=== PATIENT | male | born 1960 | race African-American/Black ===

== ENCOUNTER 2018-03-19 15:31 | Inpatient (IN) | payer OTHER ==
[~2018-03-19] VITALS: Ht 185.4 cm; Wt 74.8 kg
[~2018-03-19 15:31] MED LIST: ALBUTEROL0.63 MG/3 HHN; IBUPROFEN600 MG ORAL; NKM
[2018-03-19 15:44] VITALS: BP 148/100
[2018-03-19] MEDS ORDERED: Isovue-300 100ml vial INJ PRN (16:00)
[2018-03-19] MEDS ORDERED: Ketorolac 30mg Inj IV ONE (16:00)
[2018-03-19] MEDS ORDERED: Morphine Sulfate 4mg/ml Inj (IV/IM USE ONLY) IVP ONE (16:00)
[2018-03-19 16:19] LABS: BASOPHILS % (AUTO) 1.1 % (0.0-2.0); EOSINOPHILS % (AUTO) 0.9 % (0.0-3.0); HEMATOCRIT 49.2 % (42.0-52.0); LYMPHOCYTES % (AUTO) 23.2 % (20.0-45.0); MEAN CORPUSCULAR VOLUME 97 FL (80-99); MONOCYTES % (AUTO) 9.4 % (1.0-10.0); NEUTROPHILS % (AUTO) 65.4 % (45.0-75.0); PLATELET COUNT 189 K/UL (150-450); RED BLOOD COUNT 5.05 M/UL (4.70-6.10); RED CELL DISTRIBUTION WIDTH 11.7 % (11.6-14.8); WHITE BLOOD COUNT 8.2 K/UL (4.8-10.8)
[2018-03-19 16:29] LABS: ANION GAP 9 mmol/L (5-15); BLOOD UREA NITROGEN 8 mg/dL (7-18); CARBON DIOXIDE 24 MMOL/L (21-32); CHLORIDE 105 MMOL/L (98-107); CREATININE 1.1 MG/DL (0.55-1.30); POTASSIUM 4.4 MMOL/L (3.5-5.1); SODIUM 138 MMOL/L (136-145)
[2018-03-19 16:35] LABS: ALANINE AMINOTRANSFERASE 25 U/L (12-78); ALBUMIN 3.4 G/DL (3.4-5.0); ALBUMIN/GLOBULIN RATIO 0.8 (1.0-2.7); ALKALINE PHOSPHATASE 61 U/L (46-116); ASPARTATE AMINO TRANSFERASE 26 U/L (15-37); BILIRUBIN,TOTAL 0.5 MG/DL (0.2-1.0)
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
[2018-03-19 17:15] VITALS: BP 144/90
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
[2018-03-19 18:15] VITALS: BP 122/83
[2018-03-19 20:00] VITALS: BP 122/78
[2018-03-19] MEDS ORDERED: Milk of Magnesia 30ml Ud ORAL PRN (21:30)
[2018-03-19] MEDS ORDERED: Mylanta II UD 30ml ORAL PRN (21:30)
[2018-03-19] MEDS ORDERED: Morphine Sulfate 2mg/ml Inj IVP PRN (21:30)
--- NOTE | 2018-03-19 21:36 | Consultation ---
History of Present Illness General Date patient seen: Mar 19, 2018 Chief Complaint: Pain Present Illness HPI 58 year old male with known history of large groin hernia for years presented with hernia pain, nausea, emesis x 1 day. States that he has had hernia for years now and intermittently has "flare-ups" where he has pain for a few days. states that today began to have a flare up with nausea and emesis. came to ed for evaluation. labs nml. CT with incarcerated left inguinal hernia. admitted for care and management. surgery called to evaluate. patient seen, chart reviewed, patient examined. no abdominal pain. n/v resolved since. passing flatus. last BM this afternoon. Allergies: Coded Allergies: No Known Allergies (Unverified , 10/16/12) Medication History Scheduled Albuterol Sulfate (Albuterol Sulfate), 0.63 MG HHN Q4HR, (Reported) Ibuprofen* (Motrin*), 600 MG ORAL Q8H No Known Medications* (NKM - No Known Medications*), 0 ., (Reported) Patient History History Provided By: Patient, Medical Record, PMD Healthcare decision maker N Resuscitation status Advanced Directive on File Past Medical/Surgical History Past Medical/Surgical History: (1) Hernia (2) Inguinal hernia of left side with obstruction Review of Systems All Other Systems: negative except mentioned in HPI Physical Exam General Appearance: no apparent distress, alert Lines, tubes and drains: peripheral HEENT: mucous membranes moist Neck: normal inspection Respiratory/Chest: normal breath sounds, no respiratory distress, no accessory muscle use Cardiovascular/Chest: normal rate, regular rhythm Abdomen: soft, no organomegaly, no mass, hernia Extremities: non-tender, normal inspection Skin Exam: warm/dry Neurologic: alert, oriented x 3 Last 24 Hour Vital Signs Date Time Temp Pulse Resp B/P (MAP) Pulse Ox O2 Delivery O2 Flow Rate FiO2 03/19/18 20:28 Room Air 03/19/18 20:00 99.4 92 19 122/78 (93) 97 03/19/18 20:00 92 19 122/78 (93) 97 03/19/18 18:15 98.7 94 18 122/83 (96) 98 03/19/18 17:57 97.6 78 20 146/78 98 Room Air 03/19/18 17:15 98.0 98 18 144/90 96 Room Air 03/19/18 16:39 97.9 03/19/18 15:44 98.0 115 23 148/100 97 Room Air 03/19/18 15:27 98.1 90 15 127/86 98 Room Air Laboratory Tests Test 03/19/18 16:00 03/19/18 17:55 White Blood Count 8.2 K/UL (4.8-10.8) Red Blood Count 5.05 M/UL (4.70-6.10) Hemoglobin 16.0 G/DL (14.2-18.0) Hematocrit 49.2 % (42.0-52.0) Mean Corpuscular Volume 97 FL (80-99) Mean Corpuscular Hemoglobin 31.6 PG (27.0-31.0) H Mean Corpuscular Hemoglobin Concent 32.4 G/DL (32.0-36.0) Red Cell Distribution Width 11.7 % (11.6-14.8) Platelet Count 189 K/UL (150-450) Mean Platelet Volume 8.1 FL (6.5-10.1) Neutrophils (%) (Auto) 65.4 % (45.0-75.0) Lymphocytes (%) (Auto) 23.2 % (20.0-45.0) Monocytes (%) (Auto) 9.4 % (1.0-10.0) Eosinophils (%) (Auto) 0.9 % (0.0-3.0) Basophils (%) (Auto) 1.1 % (0.0-2.0) Prothrombin Time 10.1 SEC (9.30-11.50) Prothromb Time International Ratio 1.0 (0.9-1.1) Activated Partial Thromboplast Time 20 SEC (23-33) L Sodium Level 138 MMOL/L (136-145) Potassium Level 4.4 MMOL/L (3.5-5.1) Chloride Level 105 MMOL/L (98-107) Carbon Dioxide Level 24 MMOL/L (21-32) Anion Gap 9 mmol/L (5-15) Blood Urea Nitrogen 8 mg/dL (7-18) Creatinine 1.1 MG/DL (0.55-1.30) Estimat Glomerular Filtration Rate > 60 mL/min (>60) Glucose Level 118 MG/DL (74-106) H Calcium Level 9.0 MG/DL (8.5-10.1) Total Bilirubin 0.5 MG/DL (0.2-1.0) Aspartate Amino Transf (AST/SGOT) 26 U/L (15-37) Alanine Aminotransferase (ALT/SGPT) 25 U/L (12-78) Alkaline Phosphatase 61 U/L (46-116) Total Protein 7.7 G/DL (6.4-8.2) Albumin 3.4 G/DL (3.4-5.0) Globulin 4.3 g/dL Albumin/Globulin Ratio 0.8 (1.0-2.7) L Lipase 119 U/L (73-393) Lactic Acid Level 1.20 mmol/L (0.4-2.0) Height (Feet): 6 Height (Inches): 1.00 Weight (Pounds): 165 Medications Current Medications Medications (Trade) Dose Ordered Sig/Ludy Route PRN Reason Start Time Stop Time Status Last Admin Dose Admin Iopamidol (Isovue-300 100ml) 100 ml NOW PRN INJ Radiology Procedure 03/19/18 16:00 Assessment/Plan Problem List: (1) Inguinal hernia of left side with obstruction Assessment & Plan: large left inguinal hernia. CT with incarceration. afebrile, HD stable, labs nml. lactic acid nml exam with large left hernia. I was able to easily reduce hernia at bedside. large mouth hernia with contents into scrotal sac without strangulation clinically will monitor overnight. will likely recur given size but unless not reducible, obstructive, or strangulated would recommend elective repair. this was explained to patient -d/c ng tube -okay for sips of clears tonight and advance diet tomorrow -AM labs -will re examine in AM thank you ICD Codes: K40.30 - Unilateral inguinal hernia, with obstruction, without gangrene, not specified as recurrent SNOMED: 790645609 Status: stable LarajorgeOsvaldo Mar 19, 2018 21:36
[2018-03-20] VITALS: BP 111/62
--- NOTE | 2018-03-20 03:00 | History and Physical Report ---
DATE OF ADMISSION: 03/19/2018 REASON FOR ADMISSION: Hernia. HISTORY OF PRESENT ILLNESS: This is a 58-year-old male. He has a large groin hernia for many years. He presented to the emergency room with nausea and emesis of one day's duration and increasing pain. The patient has intermittent flare-ups. They last few days and are similar to this, although of severity at this time is much worse. The patient had a CAT scan revealing incarceration of the left inguinal hernia. PAST MEDICAL HISTORY: Includes COPD and hypertension. ALLERGIES: None. MEDICATIONS: Reviewed and reconciled. FAMILY HISTORY: Noncontributory. SOCIAL HISTORY: No current smoking or alcohol use. No substance abuse. REVIEW OF SYSTEMS: Otherwise unremarkable. PHYSICAL EXAMINATION: VITAL SIGNS: Afebrile. Blood pressure 127/86, pulse 90, respiratory rate 15. HEENT: Normocephalic, atraumatic. Conjunctivae pink. Sclerae are anicteric. Oropharynx clear. Mucous membranes moist. NECK: Supple. LUNGS: Clear. CARDIAC: Regular rhythm and rate. Normal S1, S2. No murmur, rub, or gallop. ABDOMEN: Soft. There is a large area of scrotal swelling, but no CVA tenderness. There is no edema on the left. LABORATORY DATA: White count 8.2, hemoglobin 16. Chemistry panel within normal limits. IMPRESSION: 1. Left inguinal hernia, possibly incarcerated. 2. History of COPD with no active bronchospasm. 3. Hypertension controlled. PLAN: 1. NPO IV fluids. 2. Pain control. 3. Emergent surgical evaluation for possible reduction of hernia versus surgical intervention. Danny Coffey M.D. DR: ISABELLA JOB#: [id number] CC:
[2018-03-20 04:00] VITALS: BP 104/69
[2018-03-20 07:26] LABS: BASOPHILS % (AUTO) 1.3 % (0.0-2.0); HEMATOCRIT 42.2 % (42.0-52.0); HEMOGLOBIN 14.1 G/DL (14.2-18.0); LYMPHOCYTES % (AUTO) 29.1 % (20.0-45.0); MEAN CORPUSCULAR VOLUME 96 FL (80-99); NEUTROPHILS % (AUTO) 58.5 % (45.0-75.0); PLATELET COUNT 195 K/UL (150-450); RED BLOOD COUNT 4.38 M/UL (4.70-6.10); WHITE BLOOD COUNT 7.2 K/UL (4.8-10.8)
[2018-03-20 07:35] LABS: ANION GAP 7 mmol/L (5-15); BLOOD UREA NITROGEN 6 mg/dL (7-18); CALCIUM 8.5 MG/DL (8.5-10.1); CARBON DIOXIDE 27 MMOL/L (21-32); CHLORIDE 106 MMOL/L (98-107); CREATININE 1.1 MG/DL (0.55-1.30); POTASSIUM 3.4 MMOL/L (3.5-5.1); SODIUM 140 MMOL/L (136-145)
[2018-03-20 08:00] VITALS: BP 115/66
[2018-03-20] MEDS ORDERED: Docusate 100mg cap ORAL SCH (09:00)
[2018-03-20] MEDS ORDERED: Heparin 5000 units/ml inj SUBQ SCH (09:00)
[2018-03-20 12:00] VITALS: BP 116/69
[2018-03-20 16:00] VITALS: BP 114/80
--- NOTE | 2018-03-20 16:14 | General Surgery Progress Note ---
General Surgery-Progress Note Subjective Symptoms: improved, pain absent, tolerating diet, passing flatus Objective Last 24 Hour Vital Signs Date Time Temp Pulse Resp B/P (MAP) Pulse Ox O2 Delivery O2 Flow Rate FiO2 03/20/18 12:00 98.9 71 19 116/69 (85) 99 03/20/18 09:00 Room Air 03/20/18 08:00 98.7 75 19 115/66 (82) 98 03/20/18 04:00 99.4 74 19 104/69 (81) 97 03/20/18 00:00 99.3 73 20 111/62 (78) 98 03/19/18 21:00 Room Air 03/19/18 20:28 Room Air 03/19/18 20:00 99.4 92 19 122/78 (93) 97 03/19/18 20:00 92 19 122/78 (93) 97 03/19/18 18:15 98.7 94 18 122/83 (96) 98 03/19/18 17:57 97.6 78 20 146/78 98 Room Air 03/19/18 17:15 98.0 98 18 144/90 96 Room Air 03/19/18 16:39 97.9 I&O Intake and Output 03/19/18 03/20/18 19:00 07:00 Intake Total 875 ml Output Total 0 ml 850 ml Balance 0 ml 25 ml Intake IV Total 875 ml Output Urine Total 0 ml 850 ml # Voids 3 Cardiovascular: RSR Respiratory: clear Abdomen: soft, flat, non-tender, present bowel sounds Extremities: no tenderness, no cyanosis Laboratory Tests Test 03/19/18 17:55 03/20/18 06:08 Lactic Acid Level 1.20 mmol/L (0.4-2.0) White Blood Count 7.2 K/UL (4.8-10.8) Red Blood Count 4.38 M/UL (4.70-6.10) L Hemoglobin 14.1 G/DL (14.2-18.0) L Hematocrit 42.2 % (42.0-52.0) Mean Corpuscular Volume 96 FL (80-99) Mean Corpuscular Hemoglobin 32.2 PG (27.0-31.0) H Mean Corpuscular Hemoglobin Concent 33.5 G/DL (32.0-36.0) Red Cell Distribution Width 12.0 % (11.6-14.8) Platelet Count 195 K/UL (150-450) Mean Platelet Volume 8.3 FL (6.5-10.1) Neutrophils (%) (Auto) 58.5 % (45.0-75.0) Lymphocytes (%) (Auto) 29.1 % (20.0-45.0) Monocytes (%) (Auto) 10.0 % (1.0-10.0) Eosinophils (%) (Auto) 1.0 % (0.0-3.0) Basophils (%) (Auto) 1.3 % (0.0-2.0) Sodium Level 140 MMOL/L (136-145) Potassium Level 3.4 MMOL/L (3.5-5.1) L Chloride Level 106 MMOL/L (98-107) Carbon Dioxide Level 27 MMOL/L (21-32) Anion Gap 7 mmol/L (5-15) Blood Urea Nitrogen 6 mg/dL (7-18) L Creatinine 1.1 MG/DL (0.55-1.30) Estimat Glomerular Filtration Rate > 60 mL/min (>60) Glucose Level 86 MG/DL (74-106) Calcium Level 8.5 MG/DL (8.5-10.1) Plan Problems: (1) Inguinal hernia of left side with obstruction Assessment & Plan: large left inguinal hernia. CT with incarceration. afebrile, HD stable, labs nml. lactic acid nml exam with large left hernia. I was able to easily reduce hernia at bedside. large mouth hernia with contents into scrotal sac without strangulation clinically will monitor overnight. will likely recur given size but unless not reducible, obstructive, or strangulated would recommend elective repair. this was explained to patient hernia still reducible exam benign doing well. tolerating diet passing flatus -d/c home outpatient follow up for hernia surgery thank you Osvaldo Oviedo Mar 20, 2018 16:14
--- NOTE | 2018-03-21 00:45 | Progress Note ---
INTERNAL MEDICINE PROGRESS NOTE DATE: 03/20/2018 SUBJECTIVE: The patient's hernia was reduced yesterday. Pain control has been improved. The patient is on a clear liquid diet. No nausea or vomiting noted. He is passing gas. PHYSICAL EXAMINATION: VITAL SIGNS: Blood pressure 115/66, pulse 75, and respirations 19. Afebrile. Oxygen saturation 98% on room air. NECK: Supple. LUNGS: Clear. CARDIAC: Regular. Normal S1, S2 with no murmur. ABDOMEN: Soft. : Hernia is reduced. EXTREMITIES: There is no edema. LABORATORY DATA: White count is 7.2, hemoglobin 14.1. Chemistry panel is notable for potassium 3.4. IMPRESSION: 1. Large left inguinal hernia status post reduction by surgeon. 2. Hypokalemia. 3. Hypertension. 4. Chronic obstructive pulmonary disease. PLAN: 1. Advance diet. 2. Discontinue IV pain control. 3. Potassium repletion. 4. Discharge plan if tolerates diet and hernia site remains stable with surgical clearance to follow. Danny Coffey M.D. DR: MERVIN JOB#: [id number] CC:
--- NOTE | 2018-03-21 14:12 | Cardiology Report ---
APPROVED REPORT EKG Measurement Heart [id number] Normal sinus rhythm Possible Left atrial enlargement Septal infarct, age undetermined Abnormal ECG
--- NOTE | 2018-03-22 08:37 | Discharge Summary ---
Discharge Summary Discharge Summary _ DATE OF ADMISSION: 03/19/2018 DATE OF DISCHARGE: 03/20/2018 DISCHARGED BY: REASON FOR ADMISSION: 58 years old male with past medical history of COPD and hypertension, presented to emergency room with nausea and vomiting for 1 day. Patient had large left groin hernia for years with intermittent flare ups. Patient reported pain at the site of hernia. Upon evaluation vital signs were stable. Laboratory workup revealed no leukocytosis ,stable hemoglobin hematocrit. Stable electrolytes and renal parameters. Lactic acid was within normal limits. CT scan of abdomen and pelvis revealed large left inguinal/scrotal hernia , containing fat , bowel and some fluid. Some thickening of small bowel loops noted. Patient admitted with diagnosis of left inguinal hernia ,possibly incarcerated; COPD, hypertension. CONSULTANTS: surgery Dr. Oviedo [facility] COURSE: Patient admitted to medical surgical floor. Patient kept n.p.o. and started on the IV hydration. Pain management was addressed. Surgery consult was requested. Surgeon seen and evaluated patient. Patient appeared hemodynamically stable, afebrile ,with stable labs and stable lactic acid. Physical exam revealed large left inguinal hernia. Surgeon was able to easily reduce the hernia at the bedside. Clinically patient had a large mouth hernia with contents into scrotal sac without strangulation. Surgeon recommended to monitor patient overnight. NG tube which was initially was placed , was discontinued. Patient started on sips of clear liquids and was advanced the next day as tolerated. Patient was able to tolerate diet. Patient continued to be hemodynamically stable, hernia was still reducible, and exam was benign. Patient was passing flatus. Surgeon explained to patient that given the large size of hernia, elective repair was recommended. Since hernia was reducible, nonobstructive and not strangulated, no need for surgical intervention at thsi time. Pain management was addressed . Supportive care provided . Electrolytes were closely monitored, potassium was replaced . Blood pressure was closely monitored, remained stable. Pulse oximetry was stable on room air. No evidence of respiratory distress or acute bronchospasm. Patient clinically stabilized and was ready for discharge home with outpatient follow-up for elective surgery Due to rapid and unexpected improvement in patient condition, patient was discharged in 1 day. FINAL DIAGNOSES: Large left inguinal hernia, status post reduction at the bedside by surgeon COPD -no evidence of bronchospasm Hypertension, stable Hypokalemia DISCHARGE MEDICATIONS: See Medication Reconciliation list. DISCHARGE INSTRUCTIONS: Patient was discharged home . Follow up with primary care provider. Follow-up with a surgeon for elective hernia repair. I have been assigned to dictate discharge summary for this account. I was not involved in the patient's management. Carol London NP Mar 22, 2018 08:37
== END 2018-03-20 18:03 | disposition home or self-care (01) | DRG 254 ==
LOC: EDBD 15:31 → EDBEDREQ 15:55 → EMR 15:59 → 3E 16:20 → EDBEDREQ 17:15 → 3E 18:41
DX: K40.30 Unilateral inguinal hernia, with obstruction, without gangrene, not specified as recurrent (principal); E87.6 Hypokalemia; I10 Essential (primary) hypertension; J44.9 Chronic obstructive pulmonary disease, unspecified
CPT/HCPCS: 36415; 71045; 74018; 74177; 80048; 80053; 83605; 83690; 85025; 85610; 85730; 86850; 86900; 86901; 87081; 93005; 96361; 96374; 96375; 99291; J2405; J8499

== ENCOUNTER 2018-03-29 17:41 | Emergency (ER) | payer OTHER ==
[~2018-03-29] VITALS: Ht 185.4 cm; Wt 74.8 kg
[2018-03-29 17:45] VITALS: BP 117/83
--- NOTE | 2018-03-29 17:45 | NUR ---
ED Nurse Note: pt brought in by EMS, c/o abd pain, n/v/d started this morning. denies eating anything unusual, rates pain 10/10. Pt AA&ox4, gcs=15, skin warm and dry, resp even and unlabored, -n/v/d, ambulates w/steady gait, PA at the bedside, VSS will continue to monitor.
[2018-03-29] MEDS ORDERED: Ketorolac 30mg Inj IM ONE (18:15)
[2018-03-29 18:48] LABS: BASOPHILS % (AUTO) 1.5 % (0.0-2.0); EOSINOPHILS % (AUTO) 0.8 % (0.0-3.0); HEMOGLOBIN 15.1 G/DL (14.2-18.0); LYMPHOCYTES % (AUTO) 19.6 % (20.0-45.0); MEAN CORPUSCULAR VOLUME 96 FL (80-99); MONOCYTES % (AUTO) 15.5 % (1.0-10.0); NEUTROPHILS % (AUTO) 62.7 % (45.0-75.0); PLATELET COUNT 164 K/UL (150-450); RED BLOOD COUNT 4.67 M/UL (4.70-6.10); RED CELL DISTRIBUTION WIDTH 12.4 % (11.6-14.8)
[2018-03-29 18:57] LABS: ANION GAP 12 mmol/L (5-15); BLOOD UREA NITROGEN 11 mg/dL (7-18); CALCIUM 8.6 MG/DL (8.5-10.1); CARBON DIOXIDE 23 MMOL/L (21-32); CHLORIDE 104 MMOL/L (98-107); POTASSIUM 3.7 MMOL/L (3.5-5.1); SODIUM 139 MMOL/L (136-145)
[2018-03-29 19:03] LABS: ALANINE AMINOTRANSFERASE 23 U/L (12-78); ALBUMIN 3.2 G/DL (3.4-5.0); ALBUMIN/GLOBULIN RATIO 0.8 (1.0-2.7); ALKALINE PHOSPHATASE 53 U/L (46-116); ASPARTATE AMINO TRANSFERASE 16 U/L (15-37); BILIRUBIN,TOTAL 0.6 MG/DL (0.2-1.0)
[2018-03-29 19:45] VITALS: BP 128/66
--- NOTE | 2018-03-29 19:45 | NUR ---
ED Nurse Note: pt discharge instruction provided with prescription, pt education done, pt advised to follow up with pcp, homeless discharge list completed, pt provided with list of clinics and snf, pt states he has place to go, pt verbalized understanding and agrees with plan. vss. A&ox4.
--- NOTE | 2018-03-29 20:43 | Emergency Room Report ---
History of Present Illness General Chief Complaint: Abdominal Pain Source: Patient Present Illness HPI 58-year-old male presents to the emergency department complaining of 8 out of 10 in severity abdominal pain, nausea, vomiting and diarrhea 2 days. Patient reports he had similar symptoms last week when he was evaluated here in the emergency department as well. Patient reports history of long-standing inguinal hernia which becomes very enlarged at times. Patient denies erythema, warmth, significant changes in tenderness to the hernia site. Patient denies fevers or chills. Patient states he is able to pass gas. He denies blood in the vomit or stool and he denies black tarry stools. Patient reports abdominal pain primarily on the lower left quadrant. Allergies: Coded Allergies: No Known Allergies (Unverified , 10/16/12) Patient History Past Medical History: see triage record Past Surgical History: none Pertinent Family History: none Reviewed Nursing Documentation: PMH: Agreed; PSxH: Agreed Nursing Documentation-PMH Past Medical History: No History, Except For Hx Hypertension: Yes Hx COPD: Yes Hx Cancer: No Hx Neurological Problems: No Review of Systems All Other Systems: negative except mentioned in HPI Physical Exam Vital Signs Date Time Temp Pulse Resp B/P (MAP) Pulse Ox O2 Delivery O2 Flow Rate FiO2 03/29/18 17:39 99.0 84 16 117/83 98 Room Air Medical Decision Making PA Attestation Dr. Garnett is my supervising Physician whom patient management has been discussed with. Diagnostic Impression: Primary Impression: Hernia ER Course Pt. presents to the ED c/o [ ] Ddx considered but are not limited to [ ] Vital signs: are WNL, pt. is afebrile H&PE are most consistent with [ ] ORDERS: -CBC, BMP: unremarkable ED INTERVENTIONS: Toradol IM DISCHARGE: At this time pt. is stable for d/c to home. Will provide printed patient care instructions, and any necessary prescriptions. Care plan and follow up instructions have been discussed with the patient prior to discharge. Labs Test 03/29/18 18:20 White Blood Count 4.0 K/UL (4.8-10.8) Red Blood Count 4.67 M/UL (4.70-6.10) Hemoglobin 15.1 G/DL (14.2-18.0) Hematocrit 45.0 % (42.0-52.0) Mean Corpuscular Volume 96 FL (80-99) Mean Corpuscular Hemoglobin 32.3 PG (27.0-31.0) Mean Corpuscular Hemoglobin Concent 33.5 G/DL (32.0-36.0) Red Cell Distribution Width 12.4 % (11.6-14.8) Platelet Count 164 K/UL (150-450) Mean Platelet Volume 8.0 FL (6.5-10.1) Neutrophils (%) (Auto) 62.7 % (45.0-75.0) Lymphocytes (%) (Auto) 19.6 % (20.0-45.0) Monocytes (%) (Auto) 15.5 % (1.0-10.0) Eosinophils (%) (Auto) 0.8 % (0.0-3.0) Basophils (%) (Auto) 1.5 % (0.0-2.0) Sodium Level 139 MMOL/L (136-145) Potassium Level 3.7 MMOL/L (3.5-5.1) Chloride Level 104 MMOL/L (98-107) Carbon Dioxide Level 23 MMOL/L (21-32) Anion Gap 12 mmol/L (5-15) Blood Urea Nitrogen 11 mg/dL (7-18) Creatinine 1.0 MG/DL (0.55-1.30) Estimat Glomerular Filtration Rate > 60 mL/min (>60) Glucose Level 93 MG/DL (74-106) Calcium Level 8.6 MG/DL (8.5-10.1) Total Bilirubin 0.6 MG/DL (0.2-1.0) Aspartate Amino Transf (AST/SGOT) 16 U/L (15-37) Alanine Aminotransferase (ALT/SGPT) 23 U/L (12-78) Alkaline Phosphatase 53 U/L (46-116) Total Protein 7.2 G/DL (6.4-8.2) Albumin 3.2 G/DL (3.4-5.0) Globulin 4.0 g/dL Albumin/Globulin Ratio 0.8 (1.0-2.7) Last Vital Signs Date Time Temp Pulse Resp B/P (MAP) Pulse Ox O2 Delivery O2 Flow Rate FiO2 03/29/18 17:45 99.0 78 16 117/83 98 Room Air Disposition: HOME, SELF-CARE Condition: Stable Scripts Mag Hydrox/Al Hydrox/Simeth (ALUM-MAG HYDROXIDE-SIMETH LIQ) 360 Ml Oral.susp 20 ML PO TID, #360 ML Prov: Marychuy Mayo 03/29/18 Referrals: [facility],REFERRING (PCP) Patient Instructions: Inguinal Hernia, Adult, [id number], Abdominal Pain, Adult Additional Instructions: Take medications as directed. Follow up with a Primary Care Provider in 3-5 days, even if your symptoms have resolved. --Please review list of primary care clinics, if you do not already have a primary care provider Return sooner to ED if new symptoms occur, or current symptoms become worse. - Please note that this Emergency Department Report was dictated using [employer] attendant technology software, occasionally this can lead to erroneous entry secondary to interpretation by the dictation equipment. Marychuy Mayo Mar 29, 2018 20:43
[2018-03-29] MEDS ORDERED: ALUM-MAG HYDRO360 ML PO (20:44)
[2018-03-29] MEDS ORDERED: Mylanta II UD 30ml ORAL ONE (20:45)
== END 2018-03-29 19:45 | disposition home or self-care (01) ==
LOC: EDBD 17:41 → EMR 18:14
DX: K40.90 Unilateral inguinal hernia, without obstruction or gangrene, not specified as recurrent (principal); J44.9 Chronic obstructive pulmonary disease, unspecified; I10 Essential (primary) hypertension; R11.2 Nausea with vomiting, unspecified; R19.7 Diarrhea, unspecified
CPT/HCPCS: 36415; 80053; 85025; 96372; 99284; J1885

== ENCOUNTER 2019-05-18 12:13 | Observation (INO) | payer OTHER ==
[2019-05-18] VITALS (10 sets, daily range): BP systolic 105–126; BP diastolic 72–85
[~2019-05-18] VITALS: Ht 188 cm; Wt 85.7 kg
[~2019-05-18 12:13] MED LIST changes: +ALUM-MAG HYDRO360 ML PO
[2019-05-18] MEDS ORDERED: fentaNYL 100 mcg/2 mL IV ONE ×3 (12:15→16:01)
--- NOTE | 2019-05-18 12:21 | Emergency Room Report ---
History of Present Illness General Chief Complaint: Abdominal Pain Source: Patient, EMS Present Illness HPI Patient is a 59-year-old male brought in by EMS for abdominal pain. Patient states that he has had abdominal pain for years but states that it was worse today. Patient complains of diffuse abdominal pain with nonbilious nonbloody vomitus. He denies any fever or chills. Patient denies any chest pain or shortness of breath. Patient denies any palpitations. He complains of constipation for the past several days. Patient admits to smoking cigarettes and crack cocaine. Allergies: Coded Allergies: No Known Allergies (Unverified , 10/16/12) Patient History Social History: Reports: drug use Reviewed Nursing Documentation: PMH: Agreed; PSxH: Agreed Nursing Documentation-PMH Past Medical History: No History, Except For Hx Hypertension: Yes Hx COPD: Yes Hx Cancer: No Hx Neurological Problems: No Review of Systems All Other Systems: negative except mentioned in HPI Physical Exam Vital Signs Date Time Temp Pulse Resp B/P (MAP) Pulse Ox O2 Delivery O2 Flow Rate FiO2 05/18/19 12:02 98.1 71 18 127/81 (96) 100 Room Air Sp02 EP Interpretation: reviewed, normal General Appearance: no apparent distress, alert, GCS 15, non-toxic Head: normocephalic, atraumatic Eyes: bilateral eye normal inspection, bilateral eye PERRL ENT: hearing grossly normal, normal pharynx, no angioedema, normal voice Neck: full range of motion, supple/symm/no masses Respiratory: chest non-tender, lungs clear, normal breath sounds, speaking full sentences Cardiovascular #1: regular rate, rhythm, no edema Gastrointestinal: soft, non-distended, no guarding, no rebound, other - Mild diffuse abdominal tenderness with no guarding or rebound, L inguinal hernia, ttp , not reducible Rectal: deferred Musculoskeletal: back normal, normal range of motion, calf tenderness, gait/ station normal, non-tender Neurologic: alert, motor strength/tone normal, oriented x3, sensory intact, responsive, speech normal Psychiatric: judgement/insight normal, memory normal, mood/affect normal, no suicidal/homicidal ideation Skin: no rash Lymphatic: no adenopathy Medical Decision Making Diagnostic Impression: Primary Impression: Hernia Additional Impressions: SBO (small bowel obstruction) Small bowel strangulation ER Course CT demonstrates large inguinal hernia with small bowel obstruction and strangulation. I have paged who is on-call for general surgery for consultation. I am also requesting insurance approval for patient admission. Patient signed out to Dr. Hoff at 1430 pending admission and surgical consultation. EKG Diagnostic Results EKG Time: 12:15 EP Interpretation: MD Severo Rate: normal Rhythm: NSR ST Segments: no acute changes ASA given to the pt in ED: No Rhythm Strip Diag. Results Rhythm Strip Time: 12:44 EP Interpretation: yes Rate: 77 Rhythm: NSR, no PVC's, no ectopy Last Vital Signs Date Time Temp Pulse Resp B/P (MAP) Pulse Ox O2 Delivery O2 Flow Rate FiO2 05/18/19 12:02 98.1 71 18 127/81 (96) 100 Room Air Signed Out To: Luis Eduardo [id number] Nichelle Elkins M.D. May 18, 2019 12:21
[2019-05-18 13:17] LABS: BASOPHILS % (AUTO) 3.3 % (0.0-2.0); EOSINOPHILS % (AUTO) 3.9 % (0.0-3.0); HEMATOCRIT 44.2 % (42.0-52.0); HEMOGLOBIN 14.8 G/DL (14.2-18.0); LYMPHOCYTES % (AUTO) 35.9 % (20.0-45.0); MEAN CORPUSCULAR VOLUME 96 FL (80-99); MONOCYTES % (AUTO) 11.1 % (1.0-10.0); NEUTROPHILS % (AUTO) 45.8 % (45.0-75.0); PLATELET COUNT 155 K/UL (150-450); RED BLOOD COUNT 4.61 M/UL (4.70-6.10); RED CELL DISTRIBUTION WIDTH 12.3 % (11.6-14.8); WHITE BLOOD COUNT 4.2 K/UL (4.8-10.8)
[2019-05-18 13:35] LABS: ANION GAP 7 mmol/L (5-15); BLOOD UREA NITROGEN 7 mg/dL (7-18); CALCIUM 8.8 MG/DL (8.5-10.1); CARBON DIOXIDE 26 MMOL/L (21-32); CHLORIDE 102 MMOL/L (98-107); CREATININE 1.1 MG/DL (0.55-1.30); POTASSIUM 3.9 MMOL/L (3.5-5.1); SODIUM 134 MMOL/L (136-145)
[2019-05-18 13:39] LABS: ALANINE AMINOTRANSFERASE 22 U/L (12-78); ALBUMIN 3.4 G/DL (3.4-5.0); ALBUMIN/GLOBULIN RATIO 0.8 (1.0-2.7); ALKALINE PHOSPHATASE 55 U/L (46-116); ASPARTATE AMINO TRANSFERASE 18 U/L (15-37); BILIRUBIN,TOTAL 0.2 MG/DL (0.2-1.0)
--- NOTE | 2019-05-18 13:56 | NUR ---
ED Nurse Note: Patient asked to give urine, patient states he can't. Advised that a straight cath can be done, patient refused. Patient states he will try to give urine, urinal given to patient.
--- NOTE | 2019-05-18 14:00 | NUR ---
TO CT SCAN VIA GURNEY LESS PAIN NOW IV INFUSING WELL
--- NOTE | 2019-05-18 14:30 | NUR ---
BACK FROM CT
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
--- NOTE | 2019-05-18 15:00 | NUR ---
CT RESULT GIVEN TO SMILEY. PAGED DR MAXWELL REGARDING THE CONSULT
--- NOTE | 2019-05-18 15:15 | NUR ---
PATIENT TO GO TO OR SOON POSSIBLE
[2019-05-18] MEDS ORDERED: Bupivacaine 0.25% Inj 30ml INJ ONE (15:30)
[2019-05-18] MEDS ORDERED: NeoSporin Gu Irrig 1ml Amp IRRIG ONE (15:30)
[2019-05-18] MEDS ORDERED: Bacitracin 50000 Units Vial ONE (15:30)
[2019-05-18] MEDS ORDERED: LR 1000ml 1,000 ML IVLG SCH (15:49)
--- NOTE | 2019-05-18 15:53 | NUR ---
PATIENT IS TRANSFERD TO OR FOR SURGERY VIA GURNEY CLOTHINGS SEND WITH PATIENT
[2019-05-18 15:57] LABS: APPEARANCE,URINE CLEAR; BILIRUBIN, URINE NEGATIVE (NEGATIVE); COLOR,URINE PALE YELLOW; GLUCOSE, URINE (UA) NEGATIVE (NEGATIVE); KETONES,URINE NEGATIVE (NEGATIVE); LEUKOCYTE ESTERASE ,URINE 1+ (NEGATIVE); NITRITE,URINE NEGATIVE (NEGATIVE); PH,URINE 7 (4.5-8.0); PROTEIN,URINE NEGATIVE (NEGATIVE); UROBILINOGEN,URINE NORMAL MG/DL (0.0-1.0)
--- NOTE | 2019-05-18 15:58 | Anethesia Preoperative Eval ---
Anesthesia Pre-op PMH/ROS General Date of Evaluation: May 18, 2019 Time of Evaluation: 15:27 Anesthesiologist: Javy ASA Score: ASA 3 - Emergency Mallampati Score Class I : Soft palate, uvula, fauces, pillars visible Class II: Soft palate, uvula, fauces visible Class III: Soft palate, base of uvula visible Class IV: Only hard plate visible Mallampati Classification: Class II Surgeon: Day Diagnosis: L Inguinal Hernia Surgical Procedure: Repair L Inguinal Hernia Anesthesia History: none Social History: current smoker, alcohol use Family History: no anesthesia problems Allergies: Coded Allergies: No Known Allergies (Unverified , 10/16/12) Medications: see eMAR Patient NPO?: Yes Past Medical History Cardiovascular: Reports: HTN Pulmonary: Reports: COPD - Smoker Gastrointestinal/Genitourinary: Reports: other - Hiatal Hernia Neurologic/Psychiatric: Reports: depression/anxiety Anesthesia Pre-op Phys. Exam Physician Exam Last Vital Signs Date Time Temp Pulse Resp B/P (MAP) Pulse Ox O2 Delivery O2 Flow Rate FiO2 05/18/19 15:38 98.0 84 16 120/80 98 Room Air Constitutional: NAD Neurologic: CN 2-12 intact Cardiovascular: RRR Respiratory: CTA Gastrointestinal: S/NT/ND Airway Exam Mallampati Score: Class II MO: full ROM: limited Teeth: missing, intact Anesthesia Pre-op A/P Labs Hematology Test 05/18/19 12:07 White Blood Count 4.2 K/UL (4.8-10.8) L Red Blood Count 4.61 M/UL (4.70-6.10) L Hemoglobin 14.8 G/DL (14.2-18.0) Hematocrit 44.2 % (42.0-52.0) Mean Corpuscular Volume 96 FL (80-99) Mean Corpuscular Hemoglobin 32.1 PG (27.0-31.0) H Mean Corpuscular Hemoglobin Concent 33.4 G/DL (32.0-36.0) Red Cell Distribution Width 12.3 % (11.6-14.8) Platelet Count 155 K/UL (150-450) Mean Platelet Volume 7.9 FL (6.5-10.1) Neutrophils (%) (Auto) 45.8 % (45.0-75.0) Lymphocytes (%) (Auto) 35.9 % (20.0-45.0) Monocytes (%) (Auto) 11.1 % (1.0-10.0) H Eosinophils (%) (Auto) 3.9 % (0.0-3.0) H Basophils (%) (Auto) 3.3 % (0.0-2.0) H Chemistry Test 05/18/19 12:50 Sodium Level 134 MMOL/L (136-145) L Potassium Level 3.9 MMOL/L (3.5-5.1) Chloride Level 102 MMOL/L (98-107) Carbon Dioxide Level 26 MMOL/L (21-32) Anion Gap 7 mmol/L (5-15) Blood Urea Nitrogen 7 mg/dL (7-18) Creatinine 1.1 MG/DL (0.55-1.30) Estimat Glomerular Filtration Rate > 60 mL/min (>60) Glucose Level 105 MG/DL (74-106) Calcium Level 8.8 MG/DL (8.5-10.1) Magnesium Level 2.0 MG/DL (1.8-2.4) Total Bilirubin 0.2 MG/DL (0.2-1.0) Aspartate Amino Transf (AST/SGOT) 18 U/L (15-37) Alanine Aminotransferase (ALT/SGPT) 22 U/L (12-78) Alkaline Phosphatase 55 U/L (46-116) Total Protein 7.6 G/DL (6.4-8.2) Albumin 3.4 G/DL (3.4-5.0) Globulin 4.2 g/dL Albumin/Globulin Ratio 0.8 (1.0-2.7) L Lipase 145 U/L (73-393) Risk Assessment & Plan Assessment: ASA 3E Plan: GA, SED, GlideScope Go Status Change Before Surgery: No Pre-Antibiotics Dru Grams Ancef IV Given Within 1 Hr of Incision: Yes Time Given: 16:31 Tramaine Palafox MD May 18, 2019 15:58
[2019-05-18] MEDS ORDERED: Lidocaine 1% MPF 10mg/ml 5ml ONE (15:59)
[2019-05-18] MEDS ORDERED: Sodium Chloride 10ml vial INJ ONE (15:59)
[2019-05-18] MEDS ORDERED: Dexamethasone 4mg/ml vial ONE (15:59)
[2019-05-18] MEDS ORDERED: Propofol 200mg/20ml IV ONE ×3 (15:59→17:25)
--- NOTE | 2019-05-18 15:59 | Immediate Post-Op Evaluation ---
Immediate Post-Op Evalulation Immediate Post-Op Evalulation Procedure: R Inguinal Hernia Repair Date of Evaluation: May 18, 2019 Time of Evaluation: 18:20 IV Fluids: 700 LR Blood Products: 0 Estimated Blood Loss: 15 Urinary Output: 0 Blood Pressure Systolic: 115 Blood Pressure Diastolic: 77 Pulse Rate: 90 Respiratory Rate: 16 O2 Sat by Pulse Oximetry: 100 Temperature (Fahrenheit): 98.2 Pain Score (1-10): 2 Nausea: No Vomiting: No Complications 0 Patient Status: awake, reacts, patent, extubated, none Hydration Status: adequate Dru Grams Ancef IV Given Within 1 Hr of Incision: Yes Time Given: 16:31 Tramaine Palafox MD May 18, 2019 15:59
[2019-05-18] MEDS ORDERED: Ketorolac 30mg Inj IV PRN ×2 (16:00)
[2019-05-18] MEDS ORDERED: Metoclopramide 10mg/2ml Inj IVP PRN (16:00)
[2019-05-18] MEDS ORDERED: LR 1000ml ONE (16:00)
[2019-05-18] MEDS ORDERED: Meperidine 25mg/0.5ml Inj (FOR RIGORS ONLY) IV PRN (16:00)
[2019-05-18] MEDS ORDERED: Hydromorphone 0.5mg/0.5ml inj IVP PRN (16:00)
[2019-05-18] MEDS ORDERED: LORazepam Inj 2mg/ml 1ml IV PRN (16:00)
[2019-05-18] MEDS ORDERED: oxyCODONE HCL/Acetaminophen 5/325mg ORAL PRN (16:00)
[2019-05-18] MEDS ORDERED: fentaNYL 100 mcg/2 mL IV PRN (16:00)
[2019-05-18] MEDS ORDERED: HYDROcodone/Acetamin 5/325 tab ORAL PRN (16:00)
[2019-05-18] MEDS ORDERED: DiphenhydrAMINE 50mg/ml Inj IVP PRN (16:00)
[2019-05-18] MEDS ORDERED: Labetalol 5mg/ml 20ml vial IV PRN (16:00)
[2019-05-18] MEDS ORDERED: Acetaminophen (Non formulary) 100 ML IV ONE (16:00)
[2019-05-18] MEDS ORDERED: Midazolam 2mg/2ml Inj IVP PRN (16:00)
[2019-05-18] MEDS ORDERED: Atropine Sulfate 0.4mg/ml inj IVP PRN (16:00)
[2019-05-18] MEDS ORDERED: HYDROcodone/Acetamin 7.5/325 tab ORAL PRN (16:00)
--- NOTE | 2019-05-18 16:00 | NUR ---
ED Nurse Note: Patient's belongings left behind d/t being taken to OR emergently. Patient's belongings placed in Psych locker 3 for safe keeping.
[2019-05-18] MEDS ORDERED: Bupivacaine 0.5% Inj 30 ml vial INJ ONE (16:15)
--- NOTE | 2019-05-18 16:15 | Pre-Procedure Note/Attestation ---
Pre-Procedure Note/Attestation Complete Prior to Procedure Planned Procedure: left Procedure Narrative: left inguinal herniorrhaphy with application of mesh Indications for Procedure Pre-Operative Diagnosis: incarcerated left inguinal hernia Attestation I attest that I discussed the nature of the procedure; its benefits; risks and complications; and alternatives (and the risks and benefits of such alternatives ), prior to the procedure, with the patient (or the patient's legal business services representative). I attest that, if there was a reasonable possibility of needing a blood transfusion, the patient (or the patient's legal business services representative) was given the [facility] standardized written summary, pursuant to the Miguel Mehama Blood Safety Act ([place] Health and Safety Code # 1645, as amended). I attest that I re-evaluated the patient just prior to the surgery and that there has been no change in the patient's H&P, except as documented below: Silverio Bernstein MD May 18, 2019 16:15
[2019-05-18 16:23] LABS: INR 0.9 (0.9-1.1)
[2019-05-18] MEDS ORDERED: NS Irrig 1000ml IRRIG ONE (17:12)
--- NOTE | 2019-05-18 17:57 | Brief Operative Note ---
Immediate Post Operative Note Operative Note Pre-op Diagnosis: incarcerated left inguinal hernia Procedure: left inguinal herniorrhaphy with application of mesh Post-op Diagnosis: same as pre-op Findings: consistent w/pre-op dx studies Surgeon: MD Edi Property Worker: none Anesthesiologist: Dr. Palafox Anesthesia: other - spinal Specimen: yes Complications: none Condition: stable Fluids: per anesthesiologist Estimated Blood Loss: volume - 20 ml Drains: none Implant(s) used?: Yes Silverio Bernstein MD May 18, 2019 17:57
[2019-05-18] MEDS ORDERED: Docusate Sod/Senna tab ORAL PRN (18:00)
[2019-05-18] MEDS ORDERED: traMADol 50mg tab ORAL PRN ×2 (18:00→18:30)
[2019-05-18] MEDS ORDERED: HYDROmorphone 1mg/ml Carpuject IVP PRN (18:00)
--- NOTE | 2019-05-18 19:30 | NUR ---
NURSE NOTES: Received patient via bed. Patient is on 3 liters via NC. IV in the Right AC infusing IVF, no redness or swelling at the site. Patient is A/O x3. SCD in place. Surgical site in the left inguinal area noted with dry dressing intact.
[2019-05-18] MEDS ORDERED: D5 1/2NS w/KCl 20mEq 1,000 ML IV SCH (20:00)
--- NOTE | 2019-05-18 20:30 | History and Physical Report ---
DATE OF ADMISSION: 05/18/2019 PREOPERATIVE EVALUATION CONSULTING PHYSICIAN: Silverio Bernstein M.D. ADMITTING PHYSICIAN: Emergency room physician. REASON FOR ADMISSION: Pain and lump in the left groin. HISTORY OF PRESENT ILLNESS: This 59-year-old male, who presented to emergency room complaining of pain in the left groin and vomiting. He states that for about two to three years he has had a left inguinal hernia, which has been reducible, but since this morning it has been irreducible and very tender. He has vomited a few times. He had a normal bowel movement yesterday. He denies any fever, cough, dysuria, or frequency. PAST MEDICAL HISTORY: He denies allergies, diabetes, hypertension, cardiac and renal diseases. He has a history of COPD. PAST SURGICAL HISTORY: None. MEDICATIONS: Inhaler. SOCIAL HISTORY: The patient is a 59-year-old male, who is single without any children. He is homeless and smokes one pack of cigarettes per day. He claims that he drinks beer every day and uses cocaine. REVIEW OF SYSTEMS: Noncontributory. PHYSICAL EXAMINATION: GENERAL: The patient appeared to be a well-developed and well-nourished 59-year-old male complaining of pain in the left groin. HEENT: Head is normocephalic and atraumatic. Eyes, both eyes are congested and he claims that he has glaucoma. Mouth is clear. NECK: There is no palpable thyromegaly or adenopathy. CHEST: Clear to auscultation and percussion. HEART: There is no gallop or murmur. S1 and S2 are within normal limits. ABDOMEN: Soft, flat, nontender. There is no palpable organomegaly. Bowel sounds are present. GENITALIA: He has a normal circumcised penis. His testicles are normal in shape and consistency. He has a very large left inguinal hernia which extends to the bottom of the scrotum and is irreducible and tender. EXTREMITIES: Within normal limits. IMAGING: CAT scan has shown small bowel obstruction due to the incarceration of the hernia. ASSESSMENT: Incarcerated left inguinal hernia. PLAN: The patient requires an emergency left inguinal herniorrhaphy. The risks and benefits were explained. He understood and granted the consent. Silverio Bernstein M.D. DR: ISA JOB#: [id number] CC: ROMINA
[2019-05-18] MEDS: ceFAZolin sod 1 GM in NS 55 ML IVPB SCH (21:36)
[2019-05-19] VITALS: BP 122/80
--- NOTE | 2019-05-19 02:30 | Operative Note - Dictated ---
DATE OF OPERATION: 05/18/2019 PREOPERATIVE DIAGNOSIS: Incarcerated left inguinal hernia. POSTOPERATIVE DIAGNOSIS: Incarcerated left inguinal hernia. OPERATION: 1. Left inguinal herniorrhaphy with application of mesh. 2. Blockage of the nerves to the left groin for the postoperative pain control. COMPLICATIONS: None. SURGEON: Silverio Bernstein M.D. AUTOMATION CONTROL INTEGRATOR: None. ANESTHESIA: Spinal. ANESTHESIOLOGIST: Tramaine Palafox M.D. INDICATION: This is a 59-year-old male, who presented to the emergency room complaining of pain in the left groin since this morning and this pain has been associated with nausea and vomiting. He claimed that he has had a reducible hernia for about 2 to 3 years, but since this morning, it has been irreducible. Physical examination showed a very large left inguinal hernia, which extended to the bottom of his scrotum and was tender and irreducible. CT scan showed a small bowel obstruction due to the incarceration of the hernia in the left groin. DESCRIPTION OF PROCEDURE: The patient was placed supine on the operating table. After successful spinal anesthesia and intravenous sedation, the hernia was reduced. After the reduction, the left groin was properly prepped and draped. The transverse left inguinal incision was given and was carried sharply through subcutaneous tissue and Angie fascia. The aponeurosis of the external oblique was reached and was opened along the fibers towards the external ring. The spermatic cord which was very thick was identified. There were extreme adhesions in the inguinal canal, which required sharp dissection. With a sharp dissection, finally the spermatic cord was completely isolated and then it was explored. A very large indirect hernia sac was identified. It was gradually dissected immediately distal to the internal ring. At this area, it was transected and it was transligated with #0 silk and a small piece was removed. The rest was left in situ and only the edges were cauterized. After this, attention was given to the floor of the inguinal canal which was bulging out, and so initially a Nayla repair was performed with plication of the transversalis fascia with the help of the running suture of #0 silk from pubic tubercle towards the internal ring. After this repair, a piece of Prolene mesh was selected and was tailored to size of the floor of the inguinal canal. This mesh was secured in place with multiple interrupted sutures of 2-0 Vicryl. The spermatic cord was passed through a small slit at the lower part of the mesh. During the dissection and repair, both ilioinguinal and iliohypogastric nerves were identified and preserved. After the application of the mesh, the incision was thoroughly irrigated with antibiotic solution and was infiltrated with a total of 20 mL of Marcaine 0.25%. The nerves to the left groin were blocked with infiltration of 10 mL of Marcaine for the postoperative pain control. After the injection, the aponeurosis of the external oblique was approximated with a running suture of 2-0 Vicryl. The subcutaneous tissue was approximated with 3-0 plain catgut and the skin incision was approximated with running subcuticular suture of 4-0 chromic. The patient tolerated the procedure very well and was transferred to recovery room in stable condition. The sponge and needle count correct. Estimated blood loss 20 mL. Condition of the patient at the end of the procedure is stable. Silverio Bernstein M.D. DR: DIONNE JOB#: [id number] CC:
[2019-05-19 04:00] VITALS: BP 129/74
[2019-05-19] MEDS: ceFAZolin sod 1 GM in NS 55 ML IVPB SCH (05:35)
[2019-05-19 06:17] LABS: ANION GAP 7 mmol/L (5-15); BASOPHILS % (AUTO) 0.9 % (0.0-2.0); BLOOD UREA NITROGEN 9 mg/dL (7-18); CALCIUM 9.1 MG/DL (8.5-10.1); CARBON DIOXIDE 28 MMOL/L (21-32); CHLORIDE 105 MMOL/L (98-107); CREATININE 1.1 MG/DL (0.55-1.30); EOSINOPHILS % (AUTO) 0.1 % (0.0-3.0); HEMATOCRIT 44.5 % (42.0-52.0); HEMOGLOBIN 15.1 G/DL (14.2-18.0); LYMPHOCYTES % (AUTO) 14.2 % (20.0-45.0); MEAN CORPUSCULAR VOLUME 96 FL (80-99); MONOCYTES % (AUTO) 8.9 % (1.0-10.0); NEUTROPHILS % (AUTO) 75.9 % (45.0-75.0); PLATELET COUNT 183 K/UL (150-450); POTASSIUM 4.6 MMOL/L (3.5-5.1); RED BLOOD COUNT 4.64 M/UL (4.70-6.10); RED CELL DISTRIBUTION WIDTH 12.5 % (11.6-14.8); SODIUM 140 MMOL/L (136-145); WHITE BLOOD COUNT 9.1 K/UL (4.8-10.8)
--- NOTE | 2019-05-19 07:15 | NUR ---
HAND-OFF: Report given to Guille RIVERA.
--- NOTE | 2019-05-19 07:20 | NUR ---
NURSE NOTES: Handoff received from NICOLE Awan. Patient received awake and alert and able to make needs known. Patient complaining of 7/10 pain at the surgical site. Surgical dressing is clean dry and intact. Patient no longer running IV fluids as is tolerating PO fluids. bed in the low and locked position with call light within reach. No acute signs of distress noted. will continue to monitor patient.
[2019-05-19 08:00] VITALS: BP 114/72
[2019-05-19 08:27] VITALS: BP 132/68
--- NOTE | 2019-05-19 08:27 | 48 Hour Post Anesthesia Eval ---
Post Anesthesia Evaluation Procedure: R Inguinal Hernia Repair Date of Evaluation: May 19, 2019 Time of Evaluation: 08:26 Blood Pressure Systolic: 132 0: 68 Pulse Rate: 64 Respiratory Rate: 20 Temperature (Fahrenheit): 97.6 O2 Sat by Pulse Oximetry: 98 Airway: patent Nausea: No Vomiting: No Pain Intensity: 2 Hydration Status: adequate Cardiopulmonary Status: stable Mental Status/LOC: patient returned to baseline Follow-up Care/Observations: n/a Post-Anesthesia Complications: none Follow-up care needed: N/A Steve Springer MD May 19, 2019 08:27
--- NOTE | 2019-05-19 09:50 | Discharge Instructions ---
Discharge Instructions Discharge Instructions Follow up with: my office in one week Diet: regular Resume Normal Activity?: Yes Activity: as tolerated, okay to shower For Surgical Patients Clean and Dry: other - dressing will be removed by surgeon For Congestive Heart Failure Reminder Report to your physician any weight gain of 5 pounds or more in one week. Silverio Bernstein MD May 19, 2019 09:50
--- NOTE | 2019-05-19 09:56 | NUR ---
NURSE NOTES: Dr escobedo the surgeon called to check on patient. Explained that patient is doing well and has ambulated to the bathroom multiple times to urinate but no bowel movement as of yet, patient did state he has been passing gas. stated he will be putting in the discharge order. Patient is homeless, contacted social media content specialist for assistance with this matter.
--- NOTE | 2019-05-19 10:27 | NUR ---
PACKAGE DESIGNER NOTE PT is identified as homeless. MARILUZ met w/ pt and assessed pt's needs. Pt presents as A&O4x and cooperative. Pt is single, never and has one adult daughter who is estranged. Pt has been homeless for over 10 years. Pt receives GR and food stamp and has no income available for this month. Pt has a part-time job near [facility]. Pt declined a placement assistance offered by MARILUZ. Pt verbalizes he is able to navigate homeless resources. Pt states he was planning to go to a homeless senior living located on [facility] or [place] [facility] [place] contact provided: Awilda Roman (friend) [phone]. Pt states his friend, Awilda has her own problem so he will not be able to stay w/ her. Pt reports hx of mental illness but pt did not provide specific information. Pt reports ETOH, THC and crack abuse. Pt declined counseling/tx intervention/resource on substance abuse. Pt denies SI/HI. Pt is ambulatory w/o DME. He is independent w/ ADLs. Pt is planning to go back to [facility], where he gets his social support and close to work, [place]. Pt has appropriate clothing. MARILUZ provided socks as per pt's request. Signed: 05/19/19 at 1033 by NICK MCGRAW <Co-Signature Required>
--- NOTE | 2019-05-19 11:44 | NUR ---
NURSE NOTES: executive services administrator spoke to patient as patient is homeless. Patient being discharged. patient has prescription in his chart. Faxed prescription over to [facility] as patient desires medications dropped to his room.
--- NOTE | 2019-05-19 12:08 | NUR ---
CASE MANAGEMENT:INITIAL REVIEW 59 YR OLD MALE BIBA FROM STRE[facility];ABDOMINAL PAIN SI;HERNIA. SM BOWEL OBSTRUCTION. SM BOWEL STRANGULATION. 98.1 84 18 127/81 98% ON RA WBC 4.2 NA+ 134 TOX+ COCAINE UA+ LEUKOCYTE, RBC IS;ZOFRAN IV IVF NS BOLUS FENTANYL IV ABD/PELVIS CT - Large left inguinal hernia, containing loops of small bowel. TO MED SURG FOR OBSERVATION OBSERVATION STATUS DCP;HOMELESS
--- NOTE | 2019-05-19 12:58 | NUR ---
NURSE NOTES: Patient discharged and left ambulatory. Patient is homeless, homeless discharge paperwork done and signed by patient. Patient had prescription medications brought over from [facility], prescriptions given to patient. Patient provided with TAP card for transportation and 2 sandwiches, also provided a jacket at patient's' request. Patient offered flu vaccination but refused. Patient instructed to follow up with Dr Bernstein in 7 days to have the surgical dressing removed. Instructed patient to keep dressing clean dry and intact and to report to emergency room for swelling, bleeding, foul smelling or yellow discharge from surgical site and for fever as these are signs and symptoms of infection. Also printed out discharge instructions for hernia repair and instructions for the prescribed antibiotic and pain medications. Instructed patient to take meds as prescribed and to follow up for any adverse reactions such as swelling above the chest, rash, trouble breathing etc. Patient signed the belongings list but mentioned that he does not have the jacket listed on the belongings list. Patient then stated that he had $200 in the jacket pocket. Called and spoke to nursing press hand supervisor Jaycee who asked if there was any money listed on the belongings list, I confirmed that no there was no money listed on the belongings list. Informed patient that there is not anything that can be done regarding the money as it was not listed, this was per the conversation with Jaycee who stated we cannot do anything unless the money was listed on the belongings list.
--- NOTE | 2019-05-22 18:59 | Discharge Summary ---
Discharge Summary Discharge Summary _ DATE OF ADMISSION: 05/18/2019 DATE OF DISCHARGE: 05/19/2019 DISCHARGED BY: Dr. Silverio Bernstein BRIEF HOSPITAL COURSE: Patient is a 59-year-old -[place] male, who presented to ED complaining of pain in the left groin and vomiting. Patient stated for about 2 to 3 weeks, he had a left inguinal hernia which has been reducible but in the morning, it became very tender. He also vomited few times. He denied fever, cough, dysuria or frequency. Upon evaluation at ED, CT scan showed large inguinal hernia with small bowel obstruction and strangulation. Surgeon was consulted. Patient required emergency left inguinal herniorrhaphy. He tolerated procedure well. Postoperatively, he was given pain management. Diet was advanced. Patient was cleared for discharge. building services engineer consulted. He was provided medications from [facility]. He was given token for transportation. FINAL DIAGNOSES: Incarcerated left inguinal hernia status post left inguinal herniorrhaphy with application of mesh. DISPOSITION: The treating physician has assessed that the patient is medically stable for discharge to an outstretched disposition. DISCHARGE MEDICATIONS: Refer to Discharge Medication List. DISCHARGE INSTRUCTIONS: Follow-up with Dr. Silverio Bernstein in a week. I have been assigned to complete a discharge summary on this account, I was not involved with the patient's management.--CONSTANZA Hammond Jacqueline Robles NP May 22, 2019 18:59
== END 2019-05-19 12:58 | disposition home or self-care (01) ==
LOC: EDBD 12:13 → EMR 15:30 → EDBEDREQ 15:48 → SUR 15:52 → 4E 18:55 → EDBEDREQ 20:08
DX: K40.90 Unilateral inguinal hernia, without obstruction or gangrene, not specified as recurrent (principal); I10 Essential (primary) hypertension; J44.9 Chronic obstructive pulmonary disease, unspecified; Z87.891 Personal history of nicotine dependence; F32.9 Major depressive disorder, single episode, unspecified; F41.9 Anxiety disorder, unspecified; F17.200 Nicotine dependence, unspecified, uncomplicated; Z59.0 Homelessness; F17.210 Nicotine dependence, cigarettes, uncomplicated; K56.609 Unspecified intestinal obstruction, unspecified as to partial versus complete obstruction
CPT/HCPCS: 36415; 49507; 74176; 80048; 80053; 80307; 81003; 83690; 83735; 85025; 85610; 85730; 86850; 86900; 86901; 93005; 96361; 96374; 96375; C1781; J0131; J0690; J1100; J1170; J2250; J2405; J2704; J3010; J7030; J7120; S0020; Z7502; Z7512; 94003; 94150; 99284; G0378